=== PATIENT | male | born 1945 | race Caucasian/White ===

== ENCOUNTER 2021-12-09 23:03 | Observation (INO) | payer MEDICARE, BC ==
[2021-12-09 23:57] LABS: ALT (SGPT) 27 U/L (8-55); AST (SGOT) 28 U/L (5-34); Albumin 4.4 g/dL (3.4-4.8); Alkaline Phosphatase 80 U/L (40-110); Anion Gap 16 mmol/L (10-20); BUN (Urea Nitrogen) 17 mg/dL (8.4-25.7); Bilirubin, Total 0.5 mg/dL (0.2-1.2); Calc. Creatinine Clearance 0 mL/min (70-130); Calcium 9.3 mg/dL (7.8-10.44); Carbon Dioxide 23 mmol/L (23-31); Chloride 104 mmol/L (98-107); Globulin 2.9 g/dL (2.4-3.5); Glucose 111 mg/dL (83-110); Hemoglobin 14.3 g/dL (13.5-17.5); Mean Corpuscular HGB CONC 34.8 g/dL (32.0-36.0); Mean Platelet Volume 12.3 fl (7.4-10.4); Platelet Count 132 10x3/uL (150-450); Protein, Total 7.3 g/dL (5.8-8.1); RBC Distribution Width 16.8 % (11.5-14.5); Red Blood Cell (RBC) Count 4.62 10x6/uL (4.32-5.72); Sodium 139 mmol/L (136-145); White Blood Cell (WBC) Count 7.4 10x3/uL (3.5-10.5)
[2021-12-09 23:58] LABS: MDiff Complete? YES; Manual Diff?? YES
[2021-12-10 00:37] LABS: Band 14 % (5-11); Lymphocytes 14 % (21-51); Monocytes 25 % (0-10); Neutrophil 42 % (42-75); Reactive Lymphocytes 5 % (0-10)
[2021-12-10 00:39] LABS: Anisocytosis SLIGHT = 6-15 cells (100X) (0-5/hpf); Stomatocytes SLIGHT = 2-5 cells (100X) (0-1/hpf)
[2021-12-10] MEDS ORDERED: Calcium Carbonate 500 MG ChewTAB PO PRN (01:46)
[2021-12-10] MEDS ORDERED: Ondansetron PF 4 MG/2 ML Vial IVP PRN (01:46)
[2021-12-10] MEDS ORDERED: Senokot S 8.6-50 MG TAB PO PRN (01:46)
[2021-12-10] MEDS ORDERED: Guaifenesin DM 100-10/5 ML UDCUP PO PRN (01:46)
[2021-12-10] MEDS ORDERED: Acetaminophen 325 MG TAB PO PRN (01:46)
[2021-12-10] MEDS ORDERED: Zolpidem Tartrate 5 MG TAB PO PRN (01:46)
[2021-12-10] MEDS ORDERED: ALPRAZolam 0.25 MG TAB PO PRN (01:51)
[2021-12-10] MEDS ORDERED: Lactated Ringer's 500 ML IV SCH (03:00)
[2021-12-10 03:07] VITALS: BMI 30.1
[2021-12-10] MEDS ORDERED: Pantoprazole 40 MG VIAL IVP SCH (03:15)
[2021-12-10] MEDS ORDERED: Mag-Al Plus 1200 MG/1200 MG/120 MG/30 ML UDCUP PO SCH (03:15)
[2021-12-10] MEDS ORDERED: Meclizine HCl 12.5 MG TAB PO SCH (03:30)
[2021-12-10 05:07] LABS: Anion Gap 14 mmol/L (10-20); BUN (Urea Nitrogen) 15 mg/dL (8.4-25.7); Calc. Creatinine Clearance 94 mL/min (70-130); Calcium 9.1 mg/dL (7.8-10.44); Carbon Dioxide 26 mmol/L (23-31); Cardiac Risk 5.3 (Less than 4.5); Chloride 104 mmol/L (98-107); Cholesterol 147 mg/dl (< 200 Desired); Glucose 100 mg/dL (83-110); HDL Cholesterol 28 mg/dL (>60 Neg Risk); LDL Cholesterol, Calculated 95 mg/dL; Potassium 4.1 mmol/L (3.5-5.1); Sodium 140 mmol/L (136-145); Triglycerides 121 mg/dL (Less than 150)
[2021-12-10 05:08] LABS: Hemoglobin 13.7 g/dL (13.5-17.5); Mean Corpuscular HGB CONC 34.1 g/dL (32.0-36.0); Mean Corpuscular Hemoglobin 30.6 pg (27.0-33.0); Mean Corpuscular Volume 89.7 fl (81.2-95.1); Mean Platelet Volume 12.3 fl (7.4-10.4); Platelet Count 108 10x3/uL (150-450); Red Blood Cell (RBC) Count 4.48 10x6/uL (4.32-5.72); White Blood Cell (WBC) Count 5.7 10x3/uL (3.5-10.5)
[2021-12-10 05:18] LABS: MDiff Complete? YES; Manual Diff?? YES
[2021-12-10 05:57] LABS: SARS-CoV-2 NAA Rapid Test Not Detected (NotDetected)
[2021-12-10 06:10] LABS: Band 10 % (5-11); Lymphocytes 24 % (21-51); Monocytes 23 % (0-10); Neutrophil 39 % (42-75); Platelet Morphology Comment Appears Decreased; Reactive Lymphocytes 3 % (0-10)
[2021-12-10 06:12] LABS: Large Platelets SLIGHT; Macrocytosis SLIGHT = 6-15 cells (100X) (0-5/hpf); Microcytosis SLIGHT = 6-15 cells (100X) (0-5/hpf)
[2021-12-10] MEDS ORDERED: Metoprolol Tartrate 25 MG TAB PO SCH (09:00)
[2021-12-10] MEDS: Enoxaparin Sodium 40 MG/0.4 ML SYRINGE SC SCH (10:31)
[2021-12-10] MEDS: Amlodipine 5 MG TAB PO SCH (10:31)
[2021-12-10] MEDS: Aspirin 81 mg Enteric Coated Tablet PO SCH (10:32)
[2021-12-10 17:01] LABS: Bilirubin Neg (Negative); Blood, Urine Negative (Negative); Clarity Clear (Clear); Glucose, Urine (Dipstick) Normal (Negative); Ketone, Urine Negative (Negative); Leukocyte Negative (Negative); Nitrite Negative (Negative); Protein, Urine (Dipstick) Negative (Neg-Trace); Specific Gravity, Urine 1.005 (1.002-1.036); Urobilinogen Normal mg/dL (Less than 2)
[2021-12-10 17:05] LABS: Bacteria/HPF None Seen HPF (None Seen); RBC/HPF 0-3 HPF (0-3); Squamous Epithelial 0-3 HPF (0-3); WBC/HPF 0-3 HPF (0-3)
[2021-12-10] MEDS ORDERED: Latanoprost 0.005% Ophth Soln 2.5 ml Bottle EA EYE SCH (21:00)
[2021-12-11] MEDS: Aspirin 81 mg Enteric Coated Tablet PO SCH (08:28)
[2021-12-11] MEDS: Amlodipine 5 MG TAB PO SCH (08:28)
[2021-12-11] MEDS: Enoxaparin Sodium 40 MG/0.4 ML SYRINGE SC SCH (08:28)
[2021-12-11 12:54] VITALS: BP 138/87; TEMP 97.2
== END 2021-12-11 14:15 | disposition home or self-care (01) ==
LOC: CSHERS 23:03 → CSHTELE 12-10 02:29
PROVIDERS: ADMIT Student in an Organized Health Care Education/Training Program; ATTEND Hospitalist
DX: R42 Dizziness and giddiness (principal); R07.89 Other chest pain; E78.5 Hyperlipidemia, unspecified; F41.9 Anxiety disorder, unspecified; K21.9 Gastro-esophageal reflux disease without esophagitis; Z87.891 Personal history of nicotine dependence; Z79.899 Other long term (current) drug therapy; R03.0 Elevated blood-pressure reading, without diagnosis of hypertension; H40.9 Unspecified glaucoma; I25.10 Atherosclerotic heart disease of native coronary artery without angina pectoris; Z79.82 Long term (current) use of aspirin; Z20.822 Contact with and (suspected) exposure to COVID-19
CPT/HCPCS: 0240U; 70450; 70551; 71045; 80048; 80053; 80061; 81001; 83735; 84443; 84484 ×3; 85025 ×2; 93005; 93306; 96372 ×2; 96374; 99285; G0378 ×2; 36415; C9113; J1650; J7120

== ENCOUNTER 2021-12-12 12:42 | Outpatient (CLI) | payer MEDICARE, BC | END 2021-12-12 12:43 | disposition home or self-care (01) | LOC: CSHCT 12:42 | PROVIDERS: ATTEND Internal Medicine Cardiovascular Disease | DX: R94.39 Abnormal result of other cardiovascular function study (principal) ==

== ENCOUNTER 2022-04-06 17:40 | Observation (INO) | payer MEDICARE, BC ==
[2022-04-06 18:20] LABS: ALT (SGPT) 28 U/L (8-55); AST (SGOT) 34 U/L (5-34); Albumin 4.5 g/dL (3.4-4.8); Alkaline Phosphatase 69 U/L (40-110); Anion Gap 16 mmol/L (10-20); BUN (Urea Nitrogen) 14 mg/dL (8.4-25.7); Bilirubin, Total 0.6 mg/dL (0.2-1.2); Calc. Creatinine Clearance 0 mL/min (70-130); Calcium 9.4 mg/dL (7.8-10.44); Carbon Dioxide 20 mmol/L (23-31); Chloride 104 mmol/L (98-107); Estimated GFR 88; Globulin 3.2 g/dL (2.4-3.5); Glucose 99 mg/dL (83-110); Potassium 4.2 mmol/L (3.5-5.1); Protein, Total 7.7 g/dL (5.8-8.1); Sodium 136 mmol/L (136-145)
[2022-04-06] MEDS ORDERED: Ondansetron PF 4 MG/2 ML Vial ONE (18:22)
[2022-04-06 18:28] LABS: Hemoglobin 13.9 g/dL (13.5-17.5); Mean Corpuscular HGB CONC 34.7 g/dL (32.0-36.0); Mean Corpuscular Hemoglobin 30.6 pg (27.0-33.0); Mean Corpuscular Volume 88.3 fl (81.2-95.1); Platelet Count 155 10x3/uL (150-450); RBC Distribution Width 17.1 % (11.5-14.5); Red Blood Cell (RBC) Count 4.54 10x6/uL (4.32-5.72); White Blood Cell (WBC) Count 6.8 10x3/uL (3.5-10.5)
[2022-04-06 18:29] LABS: MDiff Complete? YES
[2022-04-06 19:00] LABS: Band 9 % (5-11); Lymphocytes 30 % (21-51); Monocytes 31 % (0-10); Neutrophil 30 % (42-75)
[2022-04-06 19:02] LABS: Platelet Morphology Comment Appears Decreased
[2022-04-06 19:03] LABS: RBC Morphology Normal
[2022-04-06] MEDS ORDERED: Meclizine HCl 25 MG TAB ONE (19:18)
[2022-04-06] MEDS ORDERED: Meclizine HCl 25 MG TAB PO PRN (20:22)
[2022-04-06 20:34] LABS: SARS-CoV-2 NAA Rapid Test Not Detected (NotDetected)
[2022-04-06] MEDS ORDERED: Latanoprost 0.005% Ophth Soln 2.5 ml Bottle EA EYE SCH (21:00)
[2022-04-06] MEDS: Sodium Chloride 0.9% 1,000 ML IV SCH (21:02)
[2022-04-06 21:25] VITALS: BMI 26.7
[2022-04-07] MEDS ORDERED: Fish Oil 1,000 MG CAP PO SCH (09:00)
[2022-04-07] MEDS ORDERED: EZETIMIBE PO SCH (09:00)
[2022-04-07] MEDS ORDERED: Enoxaparin Sodium 40 MG/0.4 ML SYRINGE SC SCH (09:00)
[2022-04-07] MEDS ORDERED: Amlodipine 5 MG TAB PO SCH (09:00)
[2022-04-07] MEDS ORDERED: BEMPEDOIC ACID PO SCH (09:00)
[2022-04-07] MEDS ORDERED: Non-Formulary Medication 1 EACH (Bempedoic Acid/Ezetimibe [Nexlizet 180-10 Mg Tablet] 1 EA PO SCH (09:00)
[2022-04-07] MEDS ORDERED: Aspirin 81 mg Enteric Coated Tablet PO SCH (09:00)
[2022-04-07] MEDS ORDERED: Cyanocobalamin (Vitamin B-12) 1,000 MCG TAB PO SCH (09:00)
[2022-04-07] MEDS: Sodium Chloride 0.9% 1,000 ML IV SCH (10:53)
[2022-04-07 12:06] VITALS: BP 140/70; TEMP 97.6
[2022-04-08] MEDS ORDERED: Cholecalciferol 1,000 UNITS (25 MCG) TAB PO SCH (09:00)
== END 2022-04-07 13:41 | disposition home or self-care (01) ==
LOC: CSHERS 17:40 → CSHTELE 21:01
PROVIDERS: ADMIT Family Medicine; ATTEND Internal Medicine
DX: I47.1 Supraventricular tachycardia (principal); I48.0 Paroxysmal atrial fibrillation; R00.1 Bradycardia, unspecified; D69.6 Thrombocytopenia, unspecified; I44.0 Atrioventricular block, first degree; U07.1 COVID-19; E11.9 Type 2 diabetes mellitus without complications; N40.0 Benign prostatic hyperplasia without lower urinary tract symptoms; F32.A Depression, unspecified; E66.9 Obesity, unspecified; Z79.84 Long term (current) use of oral hypoglycemic drugs; Z79.82 Long term (current) use of aspirin; Z79.899 Other long term (current) drug therapy; Z90.49 Acquired absence of other specified parts of digestive tract; Z98.890 Other specified postprocedural states
CPT/HCPCS: 70450; 83735; 84484 ×3; 93005; 96372; G0378 ×3; U0002; 36415; 80053; 84443; 85025; J1650; J2405; J7050

== ENCOUNTER 2022-04-20 14:38 | Observation (INO) | payer MEDICARE, BC ==
[2022-04-20 16:00] LABS: Hemoglobin 11.4 g/dL (13.5-17.5); Mean Corpuscular HGB CONC 33.9 g/dL (32.0-36.0); Mean Corpuscular Volume 91.3 fl (81.2-95.1); Mean Platelet Volume 12.7 fl (7.4-10.4); Platelet Count 245 10x3/uL (150-450); RBC Distribution Width 16.2 % (11.5-14.5); Red Blood Cell (RBC) Count 3.68 10x6/uL (4.32-5.72); White Blood Cell (WBC) Count 8.8 10x3/uL (3.5-10.5)
[2022-04-20 16:01] LABS: MDiff Complete? YES
[2022-04-20 16:07] LABS: ALT (SGPT) 16 U/L (8-55); AST (SGOT) 21 U/L (5-34); Albumin 3.9 g/dL (3.4-4.8); Alkaline Phosphatase 61 U/L (40-110); Anion Gap 13 mmol/L (10-20); BUN (Urea Nitrogen) 13 mg/dL (8.4-25.7); Bilirubin, Total 0.8 mg/dL (0.2-1.2); Calc. Creatinine Clearance 0 mL/min (70-130); Calcium 8.6 mg/dL (7.8-10.44); Carbon Dioxide 25 mmol/L (23-31); Chloride 104 mmol/L (98-107); Estimated GFR 88; Glucose 101 mg/dL (83-110); Potassium 4.3 mmol/L (3.5-5.1); Protein, Total 6.9 g/dL (5.8-8.1); Sodium 138 mmol/L (136-145)
[2022-04-20] MEDS ORDERED: hydrALAZINE 20 MG/ML VIAL SLOW IVP PRN (16:42)
[2022-04-20 16:46] LABS: Band 5 % (5-11); Lymphocytes 13 % (21-51); Monocytes 29 % (0-10); Neutrophil 52 % (42-75)
[2022-04-20 16:47] LABS: Anisocytosis SLIGHT = 6-15 cells (100X) (0-5/hpf); Hypochromia SLIGHT = 6-15 cells (100X) (0-5/hpf); Platelet Morphology Comment Appears Adequate
[2022-04-20 19:15] LABS: Troponin I 0.021 ng/mL (< 0.028)
[2022-04-20] MEDS: Atorvastatin Calcium 40 MG TAB PO SCH (20:30)
[2022-04-20 21:26] LABS: SARS-CoV-2 NAA Rapid Test Not Detected (NotDetected)
[2022-04-20 22:12] LABS: Troponin I 0.016 ng/mL (< 0.028)
[2022-04-21 04:28] LABS: Hemoglobin 11.1 g/dL (13.5-17.5); Mean Corpuscular HGB CONC 33.2 g/dL (32.0-36.0); Mean Corpuscular Hemoglobin 30.3 pg (27.0-33.0); Mean Corpuscular Volume 91.3 fl (81.2-95.1); Mean Platelet Volume 12.9 fl (7.4-10.4); Platelet Count 248 10x3/uL (150-450); RBC Distribution Width 16.6 % (11.5-14.5); Red Blood Cell (RBC) Count 3.66 10x6/uL (4.32-5.72); White Blood Cell (WBC) Count 5.7 10x3/uL (3.5-10.5)
[2022-04-21 04:34] LABS: Anion Gap 16 mmol/L (10-20); BUN (Urea Nitrogen) 10 mg/dL (8.4-25.7); Calc. Creatinine Clearance 113 mL/min (70-130); Calcium 8.7 mg/dL (7.8-10.44); Carbon Dioxide 24 mmol/L (23-31); Cardiac Risk 5.2 (Less than 4.5); Chloride 107 mmol/L (98-107); Cholesterol 94 mg/dl (< 200 Desired); Estimated GFR 91; Glucose 102 mg/dL (83-110); HDL Cholesterol 18 mg/dL (>60 Neg Risk); LDL Cholesterol, Calculated 56 mg/dL; Potassium 3.6 mmol/L (3.5-5.1); Sodium 143 mmol/L (136-145); Triglycerides 98 mg/dL (Less than 150)
[2022-04-21 04:50] LABS: Syphilis Antibody Nonreactive (Nonreactive); Syphilis Antibody Index 0.06 S/CO (<1.00 Non-Reactive)
[2022-04-21 05:11] LABS: MDiff Complete? YES
[2022-04-21 05:16] LABS: Band 20 % (5-11); Eosinophils 1 % (0-10); Lymphocytes 24 % (21-51); Metamyelocyte 1 % (0-0); Monocytes 27 % (0-10); Myelocyte 1 % (0-0); Neutrophil 24 % (42-75); Reactive Lymphocytes 1 % (0-10)
[2022-04-21 05:18] LABS: Platelet Morphology Comment Appears Adequate; RBC Morphology Normal
[2022-04-21] MEDS: Aspirin 81 mg Enteric Coated Tablet PO SCH (07:56)
[2022-04-21] MEDS ORDERED: Iopamidol 370 76% 100 ML VIAL ONE (09:24)
[2022-04-21] MEDS ORDERED: Non-Formulary Medication 1 EACH (Bempedoic Acid/Ezetimibe [Nexlizet 180-10 Mg Tablet] 1 EA PO SCH (21:00)
[2022-04-21] MEDS ORDERED: PUMPKIN SEED OIL PO SCH (21:00)
[2022-04-21] MEDS ORDERED: [UNRECOGNIZED DRUG - OTHER] PO SCH (21:00)
[2022-04-21] MEDS ORDERED: SAW PALMETTO PO SCH (21:00)
[2022-04-21] MEDS: Atorvastatin Calcium 40 MG TAB PO SCH (21:56)
[2022-04-22] MEDS ORDERED: Acetaminophen 325 MG TAB PO PRN (03:27)
[2022-04-22] MEDS ORDERED: Fish Oil 1,000 MG CAP PO SCH (09:00)
[2022-04-22] MEDS ORDERED: Amlodipine 5 MG TAB PO SCH (09:00)
[2022-04-22] MEDS ORDERED: Cholecalciferol 1,000 UNITS (25 MCG) TAB PO SCH (09:00)
[2022-04-22] MEDS ORDERED: Ondansetron ODT 4 MG TAB PO SCH (10:00)
[2022-04-22 12:26] VITALS: BP 135/63; TEMP 97.7
[2022-04-22] MEDS: Aspirin 81 mg Enteric Coated Tablet PO SCH (12:37)
== END 2022-04-22 13:14 | disposition home or self-care (01) ==
LOC: CSHERS 14:38 → CSHTELE 18:58
PROVIDERS: ADMIT Hospitalist; ATTEND Family Medicine
DX: G45.9 Transient cerebral ischemic attack, unspecified (principal); R42 Dizziness and giddiness; I10 Essential (primary) hypertension; E78.5 Hyperlipidemia, unspecified; I25.10 Atherosclerotic heart disease of native coronary artery without angina pectoris; K21.9 Gastro-esophageal reflux disease without esophagitis; Z79.82 Long term (current) use of aspirin; Z79.899 Other long term (current) drug therapy; Z88.2 Allergy status to sulfonamides; Z88.1 Allergy status to other antibiotic agents; Z88.8 Allergy status to other drugs, medicaments and biological substances; Z20.822 Contact with and (suspected) exposure to COVID-19; Z98.890 Other specified postprocedural states
CPT/HCPCS: 70450; 70496; 70498; 70551; 80048; 80053; 80061; 84484 ×2; 85025 ×2; 86780; 93005; 93306; 99285; G0378 ×4; U0002; 36415; Q0162; Q9967

== ENCOUNTER 2023-08-17 13:14 | Outpatient (CLI) | payer MEDICARE, BC | END 2023-08-17 13:15 | disposition home or self-care (01) | LOC: CSHULT 13:14 | PROVIDERS: ATTEND Psychiatry & Neurology Neurology | DX: G62.9 Polyneuropathy, unspecified (principal); M48.061 Spinal stenosis, lumbar region without neurogenic claudication; R93.6 Abnormal findings on diagnostic imaging of limbs | CPT/HCPCS: 93923 ==

== ENCOUNTER 2023-08-23 14:42 | Outpatient (CLI) | payer MEDICARE, BC | END 2023-08-23 14:43 | disposition home or self-care (01) | LOC: CSHCT 14:42 | PROVIDERS: ATTEND Psychiatry & Neurology Neurology | DX: M48.061 Spinal stenosis, lumbar region without neurogenic claudication (principal); M47.816 Spondylosis without myelopathy or radiculopathy, lumbar region | CPT/HCPCS: 72131 ==

== ENCOUNTER 2025-03-01 14:54 | Outpatient (CLI) | payer MEDICARE, BC | END 2025-03-01 14:55 | disposition home or self-care (01) | LOC: CSHRAD 14:54 → MERGE 14:54 → CSHRAD 14:55 | PROVIDERS: ATTEND Family Medicine | DX: R05.9 Cough, unspecified (principal) | CPT/HCPCS: 71046 ==

== ENCOUNTER 2025-03-29 14:00 | Outpatient (CLI) | payer MEDICARE, BC | END 2025-03-29 14:01 | disposition home or self-care (01) | LOC: CSHCT 14:00 | PROVIDERS: ATTEND Family Medicine | DX: H70.12 Chronic mastoiditis, left ear (principal) | CPT/HCPCS: 70480 ==

== ENCOUNTER 2025-04-22 20:31 | Emergency (ER) | payer MEDICARE, BC | END 2025-04-22 23:15 | disposition home or self-care (01) | LOC: CSHERS 20:31 | DX: L03.115 Cellulitis of right lower limb (principal); R22.41 Localized swelling, mass and lump, right lower limb ==

== ENCOUNTER 2025-07-12 13:12 | Outpatient (CLI) | payer MEDICARE, BC ==
[2025-07-12 15:57] LABS: Estimated GFR - POC 50.0
== END 2025-07-12 13:13 | disposition home or self-care (01) ==
LOC: CSHCT 13:12
PROVIDERS: ATTEND Family Medicine
DX: K57.92 Diverticulitis of intestine, part unspecified, without perforation or abscess without bleeding (principal); K57.90 Diverticulosis of intestine, part unspecified, without perforation or abscess without bleeding; K80.20 Calculus of gallbladder without cholecystitis without obstruction
CPT/HCPCS: 74177; 82565